=== PATIENT | female | born 2000 ===

== ENCOUNTER → 2022-10-28 | Outpatient (CLI) | payer OTHER ==
--- NOTE | 2022-10-28 15:33 | Diagnostic Imaging Report ---
INDICATION: Right rib injury 3 views of the right ribs do not show any displaced fractures. Right lung is clear. There is no effusion or pneumothorax. IMPRESSION: Negative right ribs. Dictated by: Dictated on workstation # [id number]
== END ==
LOC: RAD 14:34
PROVIDERS: ATTEND Nurse Practitioner Family
DX: S29.9XXA Unspecified injury of thorax, initial encounter (principal); X58.XXXA Exposure to other specified factors, initial encounter
CPT/HCPCS: 71100